=== PATIENT | male | born 1995 | race Caucasian/White ===

== ENCOUNTER 2017-03-23 23:46 | Emergency (ER) | payer OTHER ==
[~2017-03-23] VITALS: Ht 177.8 cm; Wt 74.1 kg
[2017-03-23 23:53] VITALS: TEMP 98.7
[2017-03-24] MEDS ORDERED: NORCO 325 MG-51 TAB PO (00:42)
[2017-03-24 01:40] VITALS: BP 130/67; PULSE 76
== END 2017-03-24 01:41 | disposition home or self-care (01) ==
LOC: COL.ER 23:46
DX: S93.401A Sprain of unspecified ligament of right ankle, initial encounter (principal); X50.1XXA Overexertion from prolonged static or awkward postures, initial encounter; Y92.310 Basketball court as the place of occurrence of the external cause
CPT/HCPCS: J1170